=== PATIENT | male | born 1990 | race Caucasian/White ===

== ENCOUNTER 2019-12-13 18:18 | Emergency (ER) | payer BC ==
[2019-12-13] MEDS ORDERED: Diphtheria,Pertussis(Acell),Tetanus Vaccine 0.5 ML Syringe IM ONE (18:19)
[2019-12-13] MEDS ORDERED: Bacitracin Oint 1 GM U/D Packet TOP ONE (18:19)
[2019-12-13] MEDS ORDERED: Acetaminophen/HYDROcodone 325-5 MG Tab PO ONE (18:28)
--- NOTE | 2019-12-13 18:47 | EDM.PDOC ---
ED HPI GENERAL MEDICAL PROBLEM - General Chief Complaint: Laceration Stated Complaint: LEFT HAND FINGER INJURY Time Seen by Provider: 12/13/19 18:19 Source of Information: Reports: Patient History Limitations: Reports: No Limitations - History of Present Illness INITIAL COMMENTS - FREE TEXT/NARRATIVE: HISTORY AND PHYSICAL: History of present illness: Patient is a 29-year-old male who presents to the emergency room with complaints of a crush injury of his left distal third digit. He states the wind got a hold of his door and it slammed shut on his finger resulting in a laceration and the base of his nail bed to be exposed. Denies any other extremity involvement. He is unsure of his last tetanus update. Patient denies any fever, chills, headache, change in vision, syncope or near syncope. Denies any chest pain, back pain, shortness of breath or cough. Denies any GI or symptoms. Patient has been eating and drinking appropriately. Review of systems: As per history of present illness and below otherwise all systems reviewed and negative. Past medical history: As per history of present illness and as reviewed below otherwise noncontributory. Surgical history: As per history of present illness and as reviewed below otherwise noncontributory. Social history: See social history for further information Family history: As per history of present illness and as reviewed below otherwise noncontributory. Physical exam: General: Well-developed and well-nourished 29-year-old male. Alert and oriented. Nontoxic-appearing and in no acute distress. HEENT: Atraumatic, normocephalic, pupils equal and reactive bilaterally, negative for conjunctival pallor or scleral icterus, mucous membranes moist, trachea midline. No drooling or trismus noted. No meningeal signs. No hot potato voice noted. Lungs: Clear to auscultation, breath sounds equal bilaterally, chest nontender. Heart: S1S2, regular rate and rhythm without overt murmur Skin: Crush injury of the left distal third digit. The base of the nail is protruding out and he has macerated skin that is measuring approximately 2.5 cm and an irregular shape on the pad of the finger. Otherwise remaining skin is intact, warm, dry. No lesions or rashes noted. Extremities: See skin for details, +CMS, moves all extremities per self without difficulty or deficits, negative for cords or calf pain. Neurovascular unremarkable. Neuro: Awake, alert, oriented. Cranial nerves II through XII unremarkable. Cerebellum unremarkable. Motor and sensory unremarkable throughout. Exam nonfocal. Notes: X-ray shows a tuft fracture with soft tissue injury, minimally displaced. 1% lidocaine was used to perform a digital block at the base of the left third digit. Several cans of wound wash were used to thoroughly irrigate the area. Chlorhexidine was used to wash the area. Usual and customary procedures were followed for suture placement. The skin involved in the laceration is very frail as he has a burst/crush injury with no nice smooth edges. The base of the nail has protruded out and 4-0 nylon, #3 interrupted sutures were placed to tack the nailbed back in to the finger, #1 interrupted suture was placed on the distal nail to the fingertip to tacked it down. #8 interrupted sutures were placed throughout the pad of the finger as the laceration is very irregular in shape and several areas of skin are very thin due to it being a burst injury. Bacitracin nonstick dressing was applied along with a bulky tube draws dressing. Encouraged him to keep this on for 24 to 48 hours. We did give the patient a cage splint for his home dressing use. We discussed the importance and need for follow-up with the hand surgeon as this is a complex laceration and open tuft fracture. The hand surgeon's phone number was given to the patient and he is encouraged to set up his appointment on Saturday. Patient will be placed on antibiotics. We discussed in great detail signs and symptoms that would prompt him to return to the emergency room. Medication, follow-up and upportive care measures were reviewed and discussed. Voices understanding and is agreeable to plan of care. Denies any further questions or concerns at this time. Diagnostics: Finger x-ray Therapeutics: Lidocaine, Sutter, Bacitracin Prescription: Keflex, Sutter Impression: Tuft fracture, open Complex laceration Plan: 1. Your x-ray shows an open finger fracture, which means you are more susceptible to getting an infection. Take the antibiotic as direct. Keep the area clean and dry. Keep covered while at work. Continue to monitor for signs of infection. IF your concerned that the area as purulent drainage, redness going up your hand, fevers, unbearable pain - RETURN to the ER. Sutures to be removed in about 10 days. 2. Tylenol and/or ibuprofen as needed for pain management. Sutter 1-2 tabs every 4-6 hours as needed for moderate to severe pain. This medication may cause drowsiness -so do not take while driving or needing to be functioning outside the house. 3. Please follow-up with hand surgeon, call Saturday to set up your appointment as we discussed. Definitive disposition and diagnosis as appropriate pending reevaluation and review of above. Left Eye Pain Score (Numeric/FACES): 6 - Related Data Allergies Allergy/AdvReac Type Severity Reaction Status Date / Time No Known Allergies Allergy Verified 12/13/19 18:32 Home Meds: Home Meds . [No Known Home Meds] 12/13/19 [History] ED ROS GENERAL - Review of Systems Review Of Systems: Comprehensive ROS is negative, except as noted in HPI. ED EXAM, SKIN/RASH Exam: See Below (See dictation) ED SKIN PROCEDURES - Laceration/Wound Repair Left 3rd digit Appearance: Irregular Distal NVT: Neuro & Vascular Intact, No Tendon Injury Anesthetic Type: Local Local Anesthetic Volume: Other (12) Skin Prep: Chlorhexidine (Hibiciens), Saline, Sterile Drape Saline Irrigation (cc's): 200 Exploration/Debridement/Repair: Wound Explored, In a Bloodless Field, Explored to Base, No Foreign Material Found Closed with: Sutures Lac/Wound length In cm: 2.5 Suture Size: 4-0 # of Sutures: 12 (SEE NOTE) Suture Type: Nylon, Interrupted, Simple Complications: No Progress/Comments: STRONG encouragement to follow up with the hand surgeon. Information was given to patient, to call on Saturday. Course - Vital Signs Last Recorded V/S: Last Vital Signs Temp 97.1 F 12/13/19 18:23 Pulse 100 12/13/19 18:23 Resp 20 12/13/19 18:23 BP Pulse Ox 97 12/13/19 18:23 - Orders/Labs/Meds Orders: Active Orders 24 hr Category Date Time Status Vaccines to be Administered [RC] PER UNIT ROUTINE Care 12/13/19 18:20 Active Meds: Medications Discontinued Medications Generic Name Dose Route Start Last Admin Trade Name Freq PRN Reason Stop Dose Admin Hydrocodone Bitart/Acetaminophen 1 tab 12/13/19 18:28 12/13/19 18:43 Sutter 325-5 Mg PO 12/13/19 18:29 1 tab ONETIME ONE Administration Bacitracin 1 dose 12/13/19 18:19 12/13/19 18:42 Bacitracin Oint 1 Gm TOP 12/13/19 18:20 1 dose ONETIME ONE Administration Diphtheria/Tetanus/Acell Pertussis 0.5 ml 12/13/19 18:19 12/13/19 18:40 Adacel IM 12/13/19 18:20 0.5 ml .ONCE ONE Administration Lidocaine HCl 5 ml 12/13/19 18:19 12/13/19 18:43 Xylocaine-Mpf 1% INJECT 12/13/19 18:20 5 ml ONETIME ONE Administration Lidocaine HCl Confirm 12/13/19 18:32 12/13/19 18:44 Xylocaine-Mpf 1% Administered 12/13/19 18:33 Not Given Dose 5 ml .ROUTE .STK-MED ONE Lidocaine HCl 5 ml 12/13/19 18:43 12/13/19 18:44 Xylocaine-Mpf 1% INJECT 12/13/19 18:44 5 ml ONETIME ONE Administration Lidocaine HCl Confirm 12/13/19 18:55 Xylocaine-Mpf 1% Administered 12/13/19 18:56 Dose 5 ml .ROUTE .STK-MED ONE Lidocaine HCl 5 ml 12/13/19 19:02 Xylocaine-Mpf 1% INJECT 12/13/19 19:03 ONETIME ONE Departure - Departure Time of Disposition: 19:36 Disposition: Home, Self-Care 01 Clinical Impression: Open fracture of tuft of distal phalanx of finger Complicated laceration of finger Qualifiers: Encounter type: initial encounter Qualified Code(s): S61.219A - Laceration without foreign body of unspecified finger without damage to nail, initial encounter - Discharge Information Instructions: Finger Fracture, Adult, Elpj-[id number], Laceration Care, Adult, Vple-xs-[id number] Referrals: PCP,None [Primary Care Provider] - Forms: ED Department Discharge Additional Instructions: The following information is given to patients seen in the emergency department who are being discharged to home. This information is to outline your options for follow-up care. We provide all patients seen in our emergency department with a follow-up referral. The need for follow-up, as well as the timing and circumstances, are variable depending upon the specifics of your emergency department visit. If you don't have a primary care physician on staff, we will provide you with a referral. We always advise you to contact your personal physician following an emergency department visit to inform them of the circumstance of the visit and for follow-up with them and/or the need for any referrals to a consulting specialist. The emergency department will also refer you to a specialist when appropriate. This referral assures that you have the opportunity for follow-up care with a specialist. All of these measure are taken in an effort to provide you with optimal care, which includes your follow-up. Under all circumstances we always encourage you to contact your private physician who remains a resource for coordinating your care. When calling for follow-up care, please make the office aware that this follow-up is from your recent emergency room visit. If for any reason you are refused follow-up, please contact the [facility] Emergency Department at and asked to speak to the emergency department charge nurse. [facility] [address] [place] [id number] [address]geon in [place] [id number] [address] [facility] 1. Your x-ray shows an open finger fracture, which means you are more susceptible to getting an infection. Take the antibiotic as direct. Keep the area clean and dry. Keep covered while at work. Continue to monitor for signs of infection. IF your concerned that the area as purulent drainage, redness going up your hand, fevers, unbearable pain - RETURN to the ER. Sutures to be removed in about 10 days. 2. Tylenol and/or ibuprofen as needed for pain management. Sutter 1-2 tabs every 4-6 hours as needed for moderate to severe pain. This medication may cause drowsiness -so do not take while driving or needing to be functioning outside the house. 3. Please follow-up with hand surgeon, call Saturday to set up your appointment as we discussed. Sepsis Event Note - Evaluation Sepsis Screening Result: No Definite Risk - Focused Exam Vital Signs: Vital Signs Temp Pulse Resp Pulse Ox 12/13/19 18:23 97.1 F 100 20 97 Date Exam was Performed: 12/13/19 Time Exam was Performed: 19:33 - My Orders Last 24 Hours: My Active Orders 12/13/19 18:20 Vaccines to be Administered [RC] PER UNIT ROUTINE - Assessment/Plan Last 24 Hours: My Active Orders 12/13/19 18:20 Vaccines to be Administered [RC] PER UNIT ROUTINE
--- NOTE | 2019-12-13 19:11 | CR ---
Left 3rd finger: 3 views centered to the left 3rd finger were obtained. Displaced tuft fracture is noted as well as mild comminution of this fracture. Soft tissue injury is also noted. No proximal bony abnormality is identified. Impression: 1. Tuft fracture as noted above with soft tissue injury. Diagnostic code #3 This report was dictated in MDT
== END 2019-12-13 19:46 | disposition home or self-care (01) ==
LOC: MW.ED 18:18
DX: S62.633B Displaced fracture of distal phalanx of left middle finger, initial encounter for open fracture (principal); Z23 Encounter for immunization; W23.0XXA Caught, crushed, jammed, or pinched between moving objects, initial encounter
CPT/HCPCS: 12001; 73140; 90471; 90715; 99283; A9270; J2001